=== PATIENT | male | born 1945 | race Caucasian/White ===

== ENCOUNTER 2016-10-10 08:09 | Emergency (ER) | payer MEDICARE ==
[2016-10-10 08:41] VITALS: BP 148/74
[2016-10-10 09:07] LABS: Basophils % (Auto) 0.8 % (0.0-1.8); Hematocrit 34.6 % (35.5-45.6); Hemoglobin 11.3 gm/dl (11.8-15.2); Mean Corpuscular HGB Conc 33 % (32-34); Mean Corpuscular Hemoglobin 29 pg (28-32); Mean Corpuscular Volume 88 fl (84-94); Platelet Count 228 K/mm3 (140-440); Red Blood Count 3.96 M/mm3 (3.65-5.03); Red Cell Distribution Width 15.2 % (13.2-15.2); White Blood Count 5.5 K/mm3 (4.5-11.0)
--- NOTE | 2016-10-10 09:20 | Cat Scan Report ---
CT CERVICAL SPINE WITHOUT CONTRAST:10/10/16 08:09:00 CLINICAL: Fall and neck pain. TECHNIQUE: Volumetric acquisition and 1.25-mm axial scan reconstructions without contrast. Sagittal and coronal reformats were performed. FINDINGS: Exaggerated cervical lordosis. Normal vertebral body alignment through T3. Degenerative disc disease with disc space narrowing and osteophytes at C5-6 and C6-7. Slight decreased height of the C5 and C6 vertebral bodies. However, no fracture. The odontoid and C1 are intact. Normal soft tissues. Normal soft tissues and airway. No apparent disc protrusions or bulges. Multilevel bilateral facet joint disease with facet joint hypertrophy. Multilevel bilateral neural foraminal stenosis secondary to uncal osteophytes and facet hypertrophy. IMPRESSION: Degenerative change. No apparent traumatic injury.
--- NOTE | 2016-10-10 09:24 | Cat Scan Report ---
CT HEAD WITHOUT CONTRAST:10/10/16 009:00 CLINICAL: Fall with blow to the head TECHNIQUE: 2.5-mm noncontrast scans. COMPARISON:None FINDINGS: The ventricles and sulci are mildly enlarged for age. No other abnormal hypodensity. No mass or mass effect. No hemorrhage, edema or extra-axial collection. Vascular calcifications. The sinuses are clear. Left frontal soft tissue swelling with a laceration. Normal orbits. The calvarium and skull base are intact. IMPRESSION: Left frontal soft tissue injury and no other apparent traumatic injury. Mild global cortical atrophy.
[2016-10-10 09:29] LABS: Albumin 3.4 g/dL (3.9-5); Albumin/Globulin Ratio 0.9 %; Alkaline Phosphatase 94 units/L (35-129); Anion Gap 19 mmol/L; BUN/Creatinine Ratio 11.42; Blood Urea Nitrogen 8 mg/dL (9-20); Calcium 8.4 mg/dL (8.4-10.2); Carbon Dioxide 21 mmol/L (22-30); Chloride 103.8 mmol/L (98-107); Glucose 96 mg/dL (75-100); Sodium 140 mmol/L (137-145); Total Protein 7.3 g/dL (6.3-8.2)
[2016-10-10 09:30] LABS: Alanine Aminotransferase < 5 units/L (7-56)
[2016-10-10 09:43] LABS: INR 1.12 (0.87-1.13)
[2016-10-10 09:44] LABS: Partial Thromboplastin Time 33.6 Sec. (24.2-36.6)
[2016-10-10] MEDS ORDERED: XYLOCAINE 2% INFILTRATI ONE (09:44)
--- NOTE | 2016-10-10 09:50 | Emergency Department Report ---
ED Fall HPI - General Chief Complaint: Fall Stated Complaint: LACERATION TO THE HEAD Time Seen by Provider: 10/10/16 09:14 Source: patient, EMS Mode of arrival: Stretcher - History of Present Illness Initial Comments: Mr. Small is a 70 years old male history of Parkinson disease he stated that he was getting out of his wheelchair to his bed and he fell he hit his head denied any history of loss of consciousness no headache no nausea no vomiting no weakness numbness or tingling sensation Complaint: fall -: Sudden Fall From: wheelchair Fall Witnessed: yes, by family Place Fall Occurred: home Loss of Consciousness: none Prolonged Down Time?: no Symptoms Prior to Fall: none Location: head Severity: mild Severity scale (0 -10): 3 Context: history of frequent falls Associated Symptoms: denies: headache, neck pain, numbness, weakness, chest paint, shortness of breath, abdominal pain, unable to walk - Related Data Allergies Allergy/AdvReac Type Severity Reaction Status Date / Time No Known Allergies Allergy Verified 10/10/16 08:19 ED Review of Systems ROS: Stated complaint: LACERATION TO THE HEAD Other details as noted in HPI Comment: All other systems reviewed and negative Constitutional: denies: chills, fever ENT: denies: ear pain, throat pain Respiratory: denies: cough, shortness of breath, SOB with exertion, SOB at rest Cardiovascular: denies: chest pain, palpitations Gastrointestinal: denies: abdominal pain, nausea, vomiting Musculoskeletal: denies: back pain, joint swelling Skin: denies: rash Neurological: denies: headache, weakness, numbness ED Past Medical Hx - Past Medical History Previous Medical History?: Yes Hx Hypertension: Yes Additional medical history: Parkinson's. A-fib - Social History Smoking Status: Never Smoker Substance Use Type: None ED Physical Exam - General Limitations: Physical Limitation General appearance: alert, in no apparent distress - Head Head exam: Present: other (2 cm laceration to the forehead) - Eye Eye exam: Present: normal appearance - ENT ENT exam: Present: normal exam - Neck Neck exam: Present: normal inspection, full ROM. Absent: tenderness, meningismus - Respiratory Respiratory exam: Present: normal lung sounds bilaterally. Absent: respiratory distress, wheezes, rales, rhonchi, stridor, chest wall tenderness, accessory muscle use, decreased breath sounds - Cardiovascular Cardiovascular Exam: Present: regular rate, normal rhythm, normal heart sounds - GI/Abdominal GI/Abdominal exam: Present: soft. Absent: tenderness, guarding, rebound, rigid , normal bowel sounds - Neurological Exam Neurological exam: Present: alert, oriented X3, CN II-XII intact - Skin Skin exam: Present: warm ED Course Vital Signs 10/10/16 10/10/16 10/10/16 08:19 08:40 09:41 Temperature 98.6 F 97.8 F Pulse Rate 47 L 46 L Respiratory 20 16 20 Rate Blood Pressure 130/40 Blood Pressure 148/74 [Right] O2 Sat by Pulse 100 98 100 Oximetry - I & D Face Type of Procedure: Simple - Laceration /Wound Repair Face Wound Location: head, face Wound Length (cm): 2 Wound's Depth, Shape: irregular Wound Explored: clean Irrigated w/ Saline (ccs): 50 Betadine Prep?: Yes Anesthesia: 1% Lidocaine Wound Debrided: moderate Wound Repaired With: sutures Suture Size/Type: 6:0 Number of Sutures: 3 Layer Closure?: No Sterile Dressing Applied?: Yes ED Medical Decision Making - Lab Data Result diagrams: 10/10/16 08:40 10/10/16 08:40 Critical care attestation.: If time is entered above; I have spent that time in minutes in the direct care of this critically ill patient, excluding procedure time. ED Disposition Clinical Impression: Head injury, Laceration of face Disposition: DC-01 TO HOME OR SELFCARE Is pt being admited?: No Condition: Stable Instructions: Minor Head Injury (ED), Suture Care (ED) Referrals: FERNANDO STONE MD [Primary Care Provider] - 3-5 Days
== END 2016-10-10 12:33 | disposition home or self-care (01) ==
LOC: ED 08:09
DX: S01.81XA Laceration without foreign body of other part of head, initial encounter (principal); I10 Essential (primary) hypertension; W05.0XXA Fall from non-moving wheelchair, initial encounter; Y93.9 Activity, unspecified; Y92.9 Unspecified place or not applicable; Y99.9 Unspecified external cause status
CPT/HCPCS: 36415; 70450; 72125; 80053; 85025; 85610; 85730

== ENCOUNTER 2016-11-01 04:33 | Emergency (ER) | payer MEDICARE ==
--- NOTE | 2016-11-01 07:12 | Emergency Department Report ---
ED Fall HPI - General Chief Complaint: Fall Stated Complaint: FALL/NOSE BLEED Time Seen by Provider: 11/01/16 06:37 Source: patient, EMS Mode of arrival: Stretcher - History of Present Illness Initial Comments: 70-year-old male fell out of bed this morning and struck. Patient has a history of Parkinson's. He does not report what happened. States he woke up on the floor. He has somepain but otherwise denies any other complaints. No headache no neck pain. He has an abrasion to his nose. He has a well-healed scar above his left eye. Denies any numbness tingling MD Complaint: fall -: Sudden Fall From: out of bed When Fall Occurred: unsure Fall Witnessed: no Place Fall Occurred: home Loss of Consciousness: none Prolonged Down Time?: no Symptoms Prior to Fall: none Location: head Associated Symptoms: denies: denies, headache, neck pain, numbness, weakness - Related Data Allergies Allergy/AdvReac Type Severity Reaction Status Date / Time No Known Allergies Allergy Verified 10/10/16 08:19 ED Review of Systems ROS: Stated complaint: FALL/NOSE BLEED Other details as noted in HPI Comment: All other systems reviewed and negative Constitutional: denies: chills, fever Eyes: denies: eye pain, eye discharge, vision change ENT: denies: ear pain, throat pain Respiratory: denies: cough, shortness of breath, wheezing Cardiovascular: denies: chest pain, palpitations Endocrine: no symptoms reported Gastrointestinal: denies: abdominal pain, nausea, diarrhea Genitourinary: denies: urgency, dysuria Musculoskeletal: denies: back pain, joint swelling, arthralgia Skin: denies: rash, lesions Neurological: denies: headache, weakness, paresthesias Psychiatric: denies: anxiety, depression Hematological/Lymphatic: denies: easy bleeding, easy bruising ED Past Medical Hx - Past Medical History Previous Medical History?: Yes Hx Hypertension: Yes Additional medical history: Parkinson's. A-fib - Surgical History Past Surgical History?: Yes Additional Surgical History: cardiac stents - Family History Family history: no significant - Social History Smoking Status: Never Smoker Substance Use Type: None ED Physical Exam - General Limitations: No Limitations General appearance: alert, in no apparent distress - Head Head exam: Present: atraumatic, normocephalic - Eye Eye exam: Present: normal appearance, other (small healed laceration above left eye). Absent: PERRL, EOMI, scleral icterus, conjunctival injection - ENT ENT exam: Present: mucous membranes moist, other (abrasion to the nose, no septal hematoma) - Neck Neck exam: Present: normal inspection. Absent: tenderness, meningismus, lymphadenopathy, thyromegaly - Respiratory Respiratory exam: Present: normal lung sounds bilaterally. Absent: respiratory distress, wheezes, rales - Cardiovascular Cardiovascular Exam: Present: regular rate, normal rhythm. Absent: systolic murmur, diastolic murmur, rubs, gallop - GI/Abdominal GI/Abdominal exam: Present: soft, normal bowel sounds. Absent: distended, tenderness - Rectal Rectal exam: Present: deferred - Extremities Exam Extremities exam: Present: normal inspection - Back Exam Back exam: Present: normal inspection - Neurological Exam Neurological exam: Present: alert, oriented X3 - Psychiatric Psychiatric exam: Present: normal affect, normal mood - Skin Skin exam: Present: warm, dry, intact, normal color. Absent: rash ED Course Vital Signs 11/01/16 11/01/16 05:15 07:05 Temperature 97.7 F Pulse Rate 46 L 48 L Respiratory 18 18 Rate Blood Pressure 153/83 Blood Pressure 117/78 [Right] O2 Sat by Pulse 99 95 Oximetry ED Medical Decision Making - Medical Decision Making 70-year-old male who fell out of bed and struck his face. Plan head CT and neck CT. If negative plan to discharge home. He has no neurological symptoms consistent with C-spine injury or intracranial pathology. I do not suspect either of these. No acute pathology on head CT or neck CT. Plan to discharge patient home. Patient is comfortable with plan. Portions of this chart were dictated with dictation software. There may be dictation errors contained within this note. Critical care attestation.: If time is entered above; I have spent that time in minutes in the direct care of this critically ill patient, excluding procedure time. ED Disposition Clinical Impression: Fall, Contusion, nose Disposition: DC-01 TO HOME OR SELFCARE Is pt being admited?: No Condition: Stable Instructions: Fall Prevention for Older Adults (ED), Contusion in Adults (ED) Referrals: PRIMARY CARE, [Primary Care Provider] - 3-5 Days
--- NOTE | 2016-11-01 08:25 | Cat Scan Report ---
CT HEAD WITHOUT CONTRAST INDICATION: Fall, head injury. COMPARISON: 10/10/2016. FINDINGS: Noncontrast head CT demonstrates stable, age-appropriate ventricles and sulci with mild periventricular and few white matter hypodense small vessel ischemic disease. No definite acute infarct, hemorrhage, mass effect or midline shift. No abnormal extra-axial fluid collections. Grossly normal posterior fossa with preserved basilar cisterns, though in part limited due to artifact. Symmetric eye globes. Mild right maxillary and ethmoid sinus mucosal thickening. Slight nasal septal deviation. Clear remainder imaged paranasal sinuses and right temporal bone/mastoid air cells. Left mastoid tip again not pneumatized, though left temporal bone air cells appear opacified. No left middle ear opacity seen. Intact calvarium. Partial healing of frontal scalp injury with mild swelling now remaining as on axial image 23. Numerous radiopaque dental material. CONCLUSION: 1. No acute intracranial CT abnormality with age appropriate atrophy and partial interval healing of left frontal scalp injury, as described. Please correlate. 2. Left mastoiditis and mild right-sided sinusitis, as above. Thank you for the opportunity to participate in this patient's care.
--- NOTE | 2016-11-01 08:36 | Cat Scan Report ---
CT CERVICAL SPINE WITHOUT CONTRAST INDICATION: Fall, head injury. COMPARISON: 10/10/2016. FINDINGS: Noncontrast axial, sagittal and coronal CT reconstructions through the cervical spine demonstrate normal posterior fossa. Opacified left temporal bone air cells. Right vertebral artery calcification. Streak artifact from radiopaque dental material limits exam. Assessment of the spinal canal itself also compromised from C5-C6 inferiorly due to artifact from shoulder soft tissues. Intact craniocervical articulation, dens, predental space, prevertebral soft tissues and the posterior elements. Normal vertebral body stature and alignment, though lower cervical degenerative spurring noted from C5-C7. Normal thyroid. Clear imaged lung bases. Patent airway. On the obtained axial images: C2-C3 demonstrates mild to moderate bilateral facet arthropathy. C3-C4 demonstrates bilateral uncovertebral spurring with moderate right and mild left neural foraminal narrowing. Moderate right and mild left facet arthropathy as well. C4-C5 demonstrates right more than left facet arthropathy. Mild left neural foraminal narrowing. C5-C6 demonstrates moderate disc narrowing. Diffuse degenerative spurring with left more than right neural foraminal narrowing. Mild bilateral facet arthropathy as well. Degenerative sclerosis also noted in C5 vertebral body inferiorly. C6-C7 demonstrates moderate disc narrowing. Diffuse degenerative spurring. Mild right neural foraminal narrowing. C6 vertebral body mild sclerosis inferiorly and lower endplate irregularity. C7-T1 appears within normal limits. CONCLUSION: No acute cervical spine CT abnormality with stable multilevel cervical spondylosis and left mastoiditis, as described. Please correlate. Thank you for the opportunity to participate in this patient's care.
[2016-11-01 11:31] VITALS: BP 143/81
== END 2016-11-01 11:31 | disposition home or self-care (01) ==
LOC: ED 04:33
DX: S00.33XA Contusion of nose, initial encounter (principal); I10 Essential (primary) hypertension; G20 Parkinson's disease; Z95.1 Presence of aortocoronary bypass graft; W06.XXXA Fall from bed, initial encounter; Y93.89 Activity, other specified; Y92.89 Other specified places as the place of occurrence of the external cause; Y99.8 Other external cause status
CPT/HCPCS: 70450; 72125; 99284

== ENCOUNTER 2017-03-11 00:42 | Inpatient (IN) | payer MEDICARE, OTHER ==
--- NOTE | 2017-03-11 00:49 | Emergency Department Report ---
HPI - General Time Seen by Provider: 03/11/17 00:46 - HPI HPI: This is a 71-year-old male presents to the emergency department by EMS from [facility] with altered mental status and some respiratory distress. He has a past medical history significant for Parkinson's, previous GI bleed, BPH, coronary artery disease with previous IA, history of SVT. He presents with a DO NOT RESUSCITATE signed. The patient apparently has a baseline mental status and GCS 15 but is currently unresponsive and nonverbal with gurgling respirations. Per EMS, the patient was found this way around 11 PM when there was a nursing change in [facility]. Unknown last known well time. ED Past Medical Hx - Past Medical History Hx Hypertension: Yes Hx CVA: No Hx Heart Attack/AMI: No Hx Congestive Heart Failure: No Hx Diabetes: No Hx Deep Vein Thrombosis: No Hx Pulmonary Embolism: No Hx GERD: No Hx Liver Disease: No Hx Renal Disease: No Hx Sickle Cell Disease: No Hx Arthritis: No Hx Headaches / Migraines: No Hx Seizures: No Hx Kidney Stones: No Hx Psychiatric Treatment: No Hx Asthma: No Hx COPD: No Hx Tuberculosis: No Hx Dementia: No Additional medical history: Parkinson's. A-fib - Surgical History Hx Coronary Stent: Yes Hx Open Heart Surgery: No Hx Pacemaker: No Hx Internal Defibrillator: No Hx Cholecystectomy: No Hx Appendectomy: No Hx Breast Surgery: No Additional Surgical History: cardiac stents - Social History Smoking Status: Never Smoker - Medications Home Medications: Home Medications Medication Instructions Recorded Confirmed Last Taken Type Apomorphine HCl [Apokyn] 10 mg SUB-Q 5XD 11/22/16 11/26/16 11/21/16 History Carbidopa/Levodopa ER 25-100 1 tab PO TID 11/22/16 11/26/16 11/21/16 History [Sinemet ER 25/100] 11/21/2016 Entacapone [Comtan] 200 mg PO Q6HR 11/22/16 11/26/16 11/21/16 History Gabapentin [Neurontin] 600 mg PO Q8HR 11/22/16 11/26/16 Unknown History Metoprolol Xl [Metoprolol 25 mg PO QDAY 11/22/16 11/26/16 Unknown History SUCCINATE ER TAB] Omeprazole 40 mg PO BID 11/22/16 11/26/16 Unknown History Oxycodone HCl/Acetaminophen 1 each PO Q4H PRN 11/22/16 11/26/16 Unknown History [Percocet 10/325 mg] Oxycodone HCl/Acetaminophen 1 each PO QHS 11/22/16 11/26/16 Unknown History [Percocet 10/325 mg] Triazolam 0.5 mg PO QHS 11/22/16 11/26/16 Unknown History amLODIPine [Norvasc] 5 mg PO DAILY 11/22/16 11/26/16 Unknown History Aspirin EC [Aspirin Enteric Coated 81 mg PO QDAY #30 tablet. 11/25/16 Unknown Rx TAB] FLUoxetine [PROzac] 60 mg PO QDAY capsule 11/25/16 11/26/16 Unknown Rx Levofloxacin [Levaquin TAB] 750 mg PO QDAY #5 tablet 11/25/16 11/26/16 Unknown Rx ED Review of Systems ROS: Stated complaint: REED Other details as noted in HPI Comment: Unobtainable due to pts medical conditions Physical Exam - Physical Exam Physical Exam: GENERAL: The patient is ill-appearing. HENT: Normocephalic. Atraumatic. Patient has moist mucous membranes. EYES: Pupils equal reactive to light bilaterally. NECK: Supple. Trachea is midline. CHEST/LUNGS: Coarse breath sounds and rhonchi heard throughout the chest. There is tachypnea and some accessory muscle use. There is respiratory distress noted. HEART/CARDIOVASCULAR: Regular. There is no tachycardia. There is no murmur. ABDOMEN: Abdomen is soft, nontender. Patient has normal bowel sounds. There is no abdominal distention. SKIN: Skin is hot but dry. NEURO: The patient is unresponsive. He will withdraw slightly to painful stimuli and does have a gag reflex. GCS of 6 MUSCULOSKELETAL: There is no deformity. There is no evidence of acute injury. - ABG Interpretation Ph: 7.44 PCO2: 26 PO2: 99 Bicarbonate: 17 Interpretation: respiratory alkalosis, metabolic alkalosis - Central Line Placement Right Femoral Consent Obtained: verbal consent (from Thao) Time Out Performed: Yes Patient Placed on Monitor/Pulse Ox: Yes MD Prep: mask, gown, gloves Central Line Prep: Chlorhexidine scrub Ultrasound Used for Placement: Yes Central Line Lumen Inserted: triple Bloods Obtained for Lab: Yes Central Line Position: good blood return, all ports aspirated, flus, sutured in place with nyl Dressing Applied: Tegaderm Patient Tolerated Procedure: well Complications: none ED Medical Decision Making - Lab Data Result diagrams: 03/11/17 01:13 03/11/17 01:13 - EKG Data -: EKG Interpreted by Me EKG shows normal: sinus rhythm, axis (left axis deviation), intervals ( prolonged QT and QTC intervals), QRS complexes (Q-wave to the inferior leads), ST-T waves Rate: normal - EKG Data When compared to previous EKG there are: previous EKG unavailable Interpretation: other (sinus rhythm, prolonged QT and QTC intervals, Q waves to the inferior leads) - Radiology Data Radiology results: report reviewed, image reviewed interpreted by me: X-ray shows some pulmonary vascular congestion. There are also patchy infiltrates seen throughout the chest. EXAM: CT HEAD/BRAIN WO CON HISTORY: AMS TECHNIQUE: Routine axial imaging was obtained of the brain without IV contrast. Comparison is made to the study of 11/01/2016. FINDINGS: There is mild generalized atrophy. There is no evidence of acute stroke or hemorrhage. There is slightly diminished attenuation of the periventricular white matter compatible with chronic ischemic white matter changes. The ventricular system is appropriate in size and is symmetric. The basal cisterns appear normal. The sinuses reveal minimal secretions in the right maxillary and left sphenoid sinuses. The mastoid air cells reveal sclerotic changes of the left air cells compatible with chronic mastoiditis. The right air cells are well pneumatized. IMPRESSION: Mild generalized atrophy with chronic ischemic white matter changes. No evidence of acute stroke or hemorrhage. Minimal dependent secretions in the right maxillary and left sphenoid sinus. Chronic left mastoiditis. Transcribed By: JANEL Dictated By: TOY URENA MD Electronically Authenticated By: TOY URENA MD Signed Date/Time: 03/10/17 3774 - Medical Decision Making The patient presents from his ECF with what appears to be respiratory distress with some gurgling respirations, rhonchi and coarse breath sounds. He presents with some hypotension, tachypnea and some hypoxia. The hypoxia improves when he is suctioned. Chest x-ray shows some vascular congestion and patchy infiltrates. CT of the head does not show any bleed, shift, mass or any acute process. Labs are mostly unremarkable. However with fever, hypotension, source of pneumonia, the patient appears to have sepsis and/or septic shock. Since the patient is DO NOT RESUSCITATE, despite the fact that he is not a candidate for BiPAP, he will not be intubated. He is currently on a nonrebreather and getting intermittent suction. I spoke to the patient's multiple times to update her about his ED course thus far and eventually spoke to her regarding pressors. She was in agreement to allow a central line to be placed and started on pressor secondary to his hypotension. Blood cultures sent and the patient was started on Zosyn and vancomycin. He will be admitted to the hospital and has been accepted for admission by the hospitalist service. - Differential Diagnosis pneumonia, influenza, sepsis, IA, dysrhythmia Critical Care Time: Yes Critical care time in (mins) excluding proc time.: 35 Critical care attestation.: If time is entered above; I have spent that time in minutes in the direct care of this critically ill patient, excluding procedure time. Critical care time spent on this patient and doing his initial evaluation, multiple re-evaluations , ordering interpretation of labs and imaging, antibiotic choice and medication administration, titration of pressors, multiple discussions with the patient's . This does not include the time spent doing the central line procedure. Critical Care Time: 35 minutes ED Disposition Clinical Impression: Hypoxia, Septic shock Pneumonia Qualifiers: Pneumonia type: due to unspecified organism Laterality: unspecified laterality Lung location: unspecified part of lung Qualified Code(s): J18.9 - Pneumonia, unspecified organism Disposition: 09 OP ADMIT IP TO THIS HOSP Is pt being admited?: Yes Condition: Critical Referrals: AMBROCIO ELLIOTT MD [Primary Care Provider] - 3-5 Days Time of Disposition: 05:50
[2017-03-11] MEDS ORDERED: TYLENOL PR ONE ×2 (01:19→10:58)
--- NOTE | 2017-03-11 01:22 | XRay Report ---
FINAL REPORT EXAM: XR CHEST 1V AP HISTORY: Altered Mental Status TECHNIQUE: A portable semi-erect view of the chest was obtained. FINDINGS: There are patchy infiltrates in the right upper lobe and to lesser extent in the left lung base. Heart size is normal. The lungs are not overtly congested. There EKG leads overlying the chest wall. The bones and soft tissues do not show any acute changes. IMPRESSION: Patchy infiltrates in the right upper lobe and left lower lobe compatible with pneumonia.
[2017-03-11] MEDS ORDERED: NACL 0.9% 1000 ML 1,000 ML ONE ×2 (01:47→20:36)
[2017-03-11 01:50] LABS: INR 1.09 (0.87-1.13)
[2017-03-11 01:51] LABS: Partial Thromboplastin Time 32.2 Sec. (24.2-36.6)
[2017-03-11] MEDS ORDERED: VANCOMYCIN/NS 1 GM/250 ML 1 GM/250 ML BAG IV ONE (02:00)
[2017-03-11] MEDS ORDERED: ZOSYN/NS 4.5GM/100ML 4.5 GM/100 ML VIAL IV ONE (02:00)
[2017-03-11 02:02] LABS: Basophils % (Auto) 0.2 % (0.0-1.8); Hematocrit 40.9 % (35.5-45.6); Hemoglobin 13.6 gm/dl (11.8-15.2); Lymphocytes # (Auto) 0.7 K/mm3 (1.2-5.4); Lymphocytes % (Auto) 9.5 % (13.4-35.0); Mean Corpuscular HGB Conc 33 % (32-34); Mean Corpuscular Hemoglobin 28 pg (28-32); Mean Corpuscular Volume 84 fl (84-94); Monocytes # (Auto) 0.4 K/mm3 (0.0-0.8); Monocytes % (Auto) 5.8 % (0.0-7.3); Platelet Count 169 K/mm3 (140-440); Red Blood Count 4.88 M/mm3 (3.65-5.03); Red Cell Distribution Width 19.6 % (13.2-15.2)
[2017-03-11 02:05] LABS: Amorphous Crystals,Urine Few; Bacteria,Urine 1+ /HPF (Negative); Bilirubin,Urine NEG (Negative); Blood,Urine SM (Negative); Color,Urine Amber (Yellow); Hyaline Casts,Urine 78 /LPF; Mucus,Urine 2+ /HPF; Nitrite,Urine POS (Negative); Protein,Urine <15 mg/dL mg/dL (Negative); Urobilinogen,Urine < 2.0 mg/dL (<2.0)
[2017-03-11 02:07] LABS: Albumin 3.4 g/dL (3.9-5); BUN/Creatinine Ratio 19; Blood Urea Nitrogen 19 mg/dL (9-20); Calcium 8.3 mg/dL (8.4-10.2); Hemolysis Index 35
[2017-03-11 02:08] LABS: Alanine Aminotransferase < 5 units/L (7-56)
[2017-03-11] MEDS ORDERED: TORADOL IV ONE (02:21)
[2017-03-11] MEDS ORDERED: NACL 0.9% 1000 ML 1,000 ML IV ONE (02:33)
--- NOTE | 2017-03-11 03:11 | Cat Scan Report ---
FINAL REPORT EXAM: CT HEAD/BRAIN WO CON HISTORY: AMS TECHNIQUE: Routine axial imaging was obtained of the brain without IV contrast. Comparison is made to the study of 11/01/2016. FINDINGS: There is mild generalized atrophy. There is no evidence of acute stroke or hemorrhage. There is slightly diminished attenuation of the periventricular white matter compatible with chronic ischemic white matter changes. The ventricular system is appropriate in size and is symmetric. The basal cisterns appear normal. The sinuses reveal minimal secretions in the right maxillary and left sphenoid sinuses. The mastoid air cells reveal sclerotic changes of the left air cells compatible with chronic mastoiditis. The right air cells are well pneumatized. IMPRESSION: Mild generalized atrophy with chronic ischemic white matter changes. No evidence of acute stroke or hemorrhage. Minimal dependent secretions in the right maxillary and left sphenoid sinus. Chronic left mastoiditis.
[2017-03-11] MEDS ORDERED: LEVOPHED DRIP 4 MG/NS 250 ML 4 MG/250 ML BAG IV ONE ×5 (04:49→20:40)
[2017-03-11] MEDS: LEVOPHED 8 MG in NACL 0.9% 250ML 242 ML IV SCH ×2 (05:00→09:32)
[2017-03-11] MEDS ORDERED: Vasostrict 20 UNIT in NACL 0.9% 100 ML IV SCH (09:00)
[2017-03-11] MEDS ORDERED: fentaNYL DRIP Premix 2,000 MCG/100 ML BAG IV SCH (09:00)
--- NOTE | 2017-03-11 09:21 | History and Physical Report ---
History of Present Illness Date of examination: 03/11/17 Date of admission: 03/11/2017 Chief complaint: chief complaint: Unresponsive since 11 PM History of present illness: DANIELLE This is a 71-year-old male presents to the emergency department by EMS from [facility] with altered mental status and some respiratory distress. He has a past medical history significant for Parkinson's, previous GI bleed, BPH, coronary artery disease with previous [place], history of SVT. He presents with a DO NOT RESUSCITATE signed. The patient apparently has a baseline mental status and GCS 15 but is currently unresponsive and nonverbal with gurgling respirations. Per EMS, the patient was found this way around 11 PM when there was a nursing change in [facility]. Unknown last known well time. Past Medical History Hx Hypertension: Yes Additional medical history: Parkinson's. A-fib -Surgical History Hx Coronary Stent: Yes Additional Surgical History: cardiac stents - Social History Smoking Status: Never Smoker - Medications Home Medications: Home Medications Medication Instructions Recorded Confirmed Last Taken Type Apomorphine HCl [Apokyn] 10 mg SUB-Q 5XD 11/22/16 11/26/16 11/21/16 History Carbidopa/Levodopa ER 25-100 1 tab PO TID 11/22/16 11/26/16 11/21/16 History [Sinemet ER 25/100] 11/21/2016 Entacapone [Comtan] 200 mg PO Q6HR 11/22/16 11/26/16 11/21/16 History Gabapentin [Neurontin] 600 mg PO Q8HR 11/22/16 11/26/16 Unknown History Metoprolol Xl [Metoprolol 25 mg PO QDAY 11/22/16 11/26/16 Unknown History SUCCINATE ER TAB] Omeprazole 40 mg PO BID 11/22/16 11/26/16 Unknown History Oxycodone HCl/Acetaminophen 1 each PO Q4H PRN 11/22/16 11/26/16 Unknown History [Percocet 10/325 mg] Oxycodone HCl/Acetaminophen 1 each PO QHS 11/22/16 11/26/16 Unknown History [Percocet 10/325 mg] Triazolam 0.5 mg PO QHS 11/22/16 11/26/16 Unknown History amLODIPine [Norvasc] 5 mg PO DAILY 11/22/16 11/26/16 Unknown History Aspirin EC [Aspirin Enteric Coated 81 mg PO QDAY #30 tablet. 11/25/16 Unknown Rx TAB] FLUoxetine [PROzac] 60 mg PO QDAY capsule 11/25/16 11/26/16 Unknown Rx Levofloxacin [Levaquin TAB] 750 mg PO QDAY #5 tablet 11/25/16 11/26/16 Unknown Rx Review of Systems ROS: Stated complaint: REED Other details as noted in HPI Unobtainable due to pts medical conditions Medications and Allergies Allergies Allergy/AdvReac Type Severity Reaction Status Date / Time No Known Allergies Allergy Verified 10/10/16 08:19 Home Medications Medication Instructions Recorded Confirmed Last Taken Type Apomorphine HCl [Apokyn] 10 mg SUB-Q 5XD 11/22/16 03/11/17 11/21/16 History Carbidopa/Levodopa ER 25-100 1 tab PO TID 11/22/16 03/11/17 11/21/16 History [Sinemet ER 25/100] 11/21/2016 Entacapone [Comtan] 200 mg PO Q6HR 11/22/16 03/11/17 11/21/16 History Metoprolol Xl [Metoprolol 25 mg PO QDAY 11/22/16 03/11/17 Unknown History SUCCINATE ER TAB] Omeprazole 40 mg PO BID 11/22/16 03/11/17 Unknown History Oxycodone HCl/Acetaminophen 1 each PO Q4H PRN 11/22/16 03/11/17 Unknown History [Percocet 10/325 mg] Oxycodone HCl/Acetaminophen 1 each PO QHS 11/22/16 03/11/17 Unknown History [Percocet 10/325 mg] Triazolam 0.5 mg PO QHS 11/22/16 03/11/17 Unknown History amLODIPine [Norvasc] 5 mg PO DAILY 11/22/16 03/11/17 Unknown History Aspirin EC [Aspirin Enteric Coated 81 mg PO QDAY #30 tablet. 11/25/16 Unknown Rx TAB] Gabapentin [Gralise] 300 mg PO DAILY 03/11/17 03/11/17 Unknown History Lactulose [Constulose] 20 gm PO Q8H 03/11/17 03/11/17 Unknown History Mirtazapine [Remeron] 30 mg PO QHS 03/11/17 03/11/17 Unknown History Multivitamin Tab W-MINERAL 1 each PO QD 03/11/17 03/11/17 Unknown History [Multiple Vitamin/Mineral (Theragran M)] Active Meds: Active Medications Norepinephrine 8 mg/ Sodium (Chloride) 250 mls @ 3.75 mls/hr IV TITR ARBEN; 2 MCG /MIN PRN Reason: Protocol Last Titration: 03/11/17 08:06 Dose: 30 mcg/min, 56.25 mls/hr Vasopressin 20 unit/ Sodium (Chloride) 101 mls @ 9.09 mls/hr IV TITR ARBEN; 0.03 UNITS/MIN PRN Reason: Protocol Fentanyl Citrate (Fentanyl Drip Premix) 2,000 mcg in 100 mls @ 3.856 mls/hr IV TITR ARBEN; 1 MCG/KG/HR PRN Reason: Protocol Exam - Physical Exam Narrative exam: patient lying in bed in respiratory distress - Constitutional Vitals: Temp Pulse Resp BP Pulse Ox 99 F 113 H 38 H 69/48 94 03/11/17 03:40 03/11/17 08:11 03/11/17 08:11 03/11/17 08:11 03/11/17 08:11 General appearance: Present: severe distress, well-nourished - EENT Eyes: Present: PERRL ENT: hearing intact, clear oral mucosa - Neck Neck: Present: supple, normal ROM - Respiratory Respiratory effort: normal Respiratory: bilateral: CTA, rales, rhonchi - Cardiovascular Heart rate: 98 Rhythm: regular Heart Sounds: Present: S1 & S2. Absent: rub, click - Extremities Extremities: no ischemia, pulses intact, pulses symmetrical, No edema Peripheral Pulses: within normal limits - Abdominal General gastrointestinal: Present: soft, non-tender, non-distended, normal bowel sounds Male genitourinary: Present: normal - Rectal Rectal Exam: stool brown - Integumentary Integumentary: Present: clear, warm, dry - Musculoskeletal Musculoskeletal: generalized weakness - Psychiatric Psychiatric: other (patient in respiratory distress) - Neurologic Neurologic: CNII-XII intact, moves all extremities - Allied Health Allied health notes reviewed: nursing, case management Results - Labs CBC & Chem 7: 03/12/17 04:05 03/12/17 04:05 Labs: Laboratory Last Values WBC 7.6 K/mm3 (4.5-11.0) 03/11/17 01:13 RBC 4.88 M/mm3 (3.65-5.03) 03/11/17 01:13 Hgb 13.6 gm/dl (11.8-15.2) 03/11/17 01:13 Hct 40.9 % (35.5-45.6) 03/11/17 01:13 MCV 84 fl (84-94) 03/11/17 01:13 MCH 28 pg (28-32) 03/11/17 01:13 MCHC 33 % (32-34) 03/11/17 01:13 RDW 19.6 % (13.2-15.2) H 03/11/17 01:13 Plt Count 169 K/mm3 (140-440) 03/11/17 01:13 Lymph % (Auto) 9.5 % (13.4-35.0) L 03/11/17 01:13 Wilkes % (Auto) 5.8 % (0.0-7.3) 03/11/17 01:13 Eos % (Auto) 0.0 % (0.0-4.3) 03/11/17 01:13 Baso % (Auto) 0.2 % (0.0-1.8) 03/11/17 01:13 Lymph # 0.7 K/mm3 (1.2-5.4) L 03/11/17 01:13 Wilkes # 0.4 K/mm3 (0.0-0.8) 03/11/17 01:13 Eos # 0.0 K/mm3 (0.0-0.4) 03/11/17 01:13 Baso # 0.0 K/mm3 (0.0-0.1) 03/11/17 01:13 Seg Neutrophils % 84.5 % (40.0-70.0) H 03/11/17 01:13 Seg Neutrophils # 6.5 K/mm3 (1.8-7.7) 03/11/17 01:13 PT 14.7 Sec. (12.2-14.9) 03/11/17 01:13 INR 1.09 (0.87-1.13) 03/11/17 01:13 APTT 32.2 Sec. (24.2-36.6) 03/11/17 01:13 POC ABG pH 7.445 (7.35-7.45) 03/11/17 01:41 POC ABG pCO2 26.0 (35-45) L 03/11/17 01:41 POC ABG pO2 99 (80-105) 03/11/17 01:41 POC ABG HCO3 17.9 03/11/17 01:41 POC ABG Total CO2 19 03/11/17 01:41 POC ABG O2 Sat 98 03/11/17 01:41 POC ABG Base Excess -6 03/11/17 01:41 FiO2 100 % 03/11/17 01:41 Sodium 137 mmol/L (137-145) 03/11/17 01:13 Potassium 3.7 mmol/L (3.6-5.0) 03/11/17 01:13 Chloride 95.8 mmol/L (98-107) L 03/11/17 01:13 Carbon Dioxide 21 mmol/L (22-30) L 03/11/17 01:13 Anion Gap 24 mmol/L 03/11/17 01:13 BUN 19 mg/dL (9-20) 03/11/17 01:13 Creatinine 1.0 mg/dL (0.8-1.5) 03/11/17 01:13 Estimated GFR > 60 ml/min 03/11/17 01:13 BUN/Creatinine Ratio 19 % 03/11/17 01:13 Glucose 124 mg/dL (75-100) H 03/11/17 01:13 Lactic Acid 1.70 mmol/L (0.7-2.0) 03/11/17 01:13 Calcium 8.3 mg/dL (8.4-10.2) L 03/11/17 01:13 Total Bilirubin 0.80 mg/dL (0.1-1.2) 03/11/17 01:13 AST 18 units/L (5-40) 03/11/17 01:13 ALT < 5 units/L (7-56) L 03/11/17 01:13 Alkaline Phosphatase 76 units/L (35-129) 03/11/17 01:13 Ammonia 18.0 umol/L (25-60) L 03/11/17 01:13 Troponin T < 0.010 ng/mL (0.00-0.029) 03/11/17 01:13 NT-Pro-B Natriuret Pep 584.8 pg/mL (0-900) 03/11/17 01:13 Total Protein 6.8 g/dL (6.3-8.2) 03/11/17 01:13 Albumin 3.4 g/dL (3.9-5) L 03/11/17 01:13 Albumin/Globulin Ratio 1.0 % 03/11/17 01:13 Urine Color Jenni (Yellow) 03/11/17 01:41 Urine Turbidity Clear (Clear) 03/11/17 01:41 Urine pH 5.0 (5.0-7.0) 03/11/17 01:41 Ur Specific Hamlin 1.028 (1.003-1.030) 03/11/17 01:41 Urine Protein <15 mg/dl mg/dL (Negative) 03/11/17 01:41 Urine Glucose (UA) Neg mg/dL (Negative) 03/11/17 01:41 Urine Ketones Neg mg/dL (Negative) 03/11/17 01:41 Urine Blood Sm (Negative) 03/11/17 01:41 Urine Nitrite Pos (Negative) 03/11/17 01:41 Urine Bilirubin Neg (Negative) 03/11/17 01:41 Urine Urobilinogen < 2.0 mg/dL (<2.0) 03/11/17 01:41 Ur Leukocyte Esterase Mod (Negative) 03/11/17 01:41 Urine WBC (Auto) 3.0 /HPF (0.0-6.0) 03/11/17 01:41 Urine RBC (Auto) 4.0 /HPF (0.0-6.0) 03/11/17 01:41 U Epithel Cells (Auto) < 1.0 /HPF (0-13.0) 03/11/17 01:41 Urine Bacteria (Auto) 1+ /HPF (Negative) 03/11/17 01:41 Amorphous Crystals Few 03/11/17 01:41 Hyaline Casts 78 /LPF 03/11/17 01:41 Urine Mucus 2+ /HPF 03/11/17 01:41 - Imaging and Cardiology EKG: report reviewed Chest x-ray: report reviewed (patchy infiltrates in the right upper lobe and left lobe) Assessment and Plan Advance Directives: Yes (DO NOT RESUSCITATE) VTE prophylaxis?: Chemical Plan of care discussed with patient/family: Yes - Patient Problems (1) Acute respiratory failure Current Visit: Yes Status: Acute Qualifiers: Respiratory failure complication: hypoxia Qualified Code(s): J96.01 - Acute respiratory failure with hypoxia Plan to address problem: patient not to be intubated. IV Solu-Medrol Duonebs and IV antibiotics. (2) Septic shock Current Visit: Yes Status: Acute Plan to address problem: patient in septic shock secondary to bilateral pneumonia. Possible aspiration pneumonia. Patient started on Zosyn and vancomycin. IV Levophed as necessary. Titrate to keep systolic blood pressure above 100. (3) Pneumonia Current Visit: Yes Status: Acute Qualifiers: Pneumonia type: aspiration pneumonia Laterality: unspecified laterality Lung location: unspecified part of lung Qualified Code(s): J18.9 - Pneumonia, unspecified organism Plan to address problem: bilateral pneumonia. Possible aspiration pneumonia. Sputum cultures pending. Blood cultures pending. IV vancomycin and IV Zosyn for now. ID consult requested. (4) Hypertension Current Visit: Yes Status: Chronic Qualifiers: Hypertension type: essential hypertension Qualified Code(s): I10 - Essential (primary) hypertension Plan to address problem: we will hold antihypertensives (5) Parkinsons disease Current Visit: Yes Status: Chronic Plan to address problem: continue Sinemet. (6) Depression Current Visit: Yes Status: Chronic Qualifiers: Depression Type: dysthymia Qualified Code(s): F34.1 - Dysthymic disorder Plan to address problem: we will hold the Prozac for the time being (7) DVT prophylaxis Current Visit: Yes Status: Acute Plan to address problem: Lovenox 30 mg subcutaneous daily (8) Advanced directives, counseling/discussion Current Visit: Yes Status: Acute Plan to address problem: discussed with about DO NOT RESUSCITATE AND HOSPICE> Patient to decide about hospice in next 24 hours. Prognosis is guarded.
[2017-03-11] MEDS ORDERED: DULCOLAX PR PRN (09:26)
[2017-03-11] MEDS ORDERED: ZOFRAN IV PRN (09:26)
[2017-03-11] MEDS ORDERED: TYLENOL PO PRN (09:26)
[2017-03-11] MEDS ORDERED: MILK OF MAGNESIA PO PRN (09:26)
[2017-03-11] MEDS ORDERED: MORPHINE IV PRN (09:26)
[2017-03-11] MEDS ORDERED: LOVENOX SUB-Q SCH (10:00)
[2017-03-11] MEDS ORDERED: VANCOMYCIN PHARMACY TO DOSE IV SCH (10:00)
[2017-03-11] MEDS: NACL 0.9% 1000 ML 1,000 ML IV SCH ×2 (10:46→21:06)
[2017-03-11] MEDS ORDERED: TYLENOL PR PRN (10:47)
[2017-03-11] MEDS ORDERED: LOVENOX SUB-Q ONE (12:02)
[2017-03-11] MEDS: LOVENOX SUB-Q SCH (12:11)
[2017-03-11] MEDS: ZOSYN/NS 4.5GM/100ML 4.5 GM/100 ML VIAL IV SCH ×3 (13:10→22:36)
[2017-03-11] MEDS: VANCOMYCIN 1,500 MG in NACL 0.9% 500 ML 500 ML IV SCH (13:44)
--- NOTE | 2017-03-11 13:48 | Consultation ---
History of Present Illness - Reason for Consult Consult date: 03/11/17 septic shock Requesting physician: CEDRIC DICKINSON - History of Present Illness 71 years old male with history of Parkinson's, previous GI bleed, BPH, coronary artery disease with previous [place], history of SVT, resident of [facility]; admitted on 03/11/17 due to altered mental status and some respiratory distress. It is unclear the details of the NH encounter where he was found unresponsive. Patient is currently intubated and unable to give a history. In the emergency room, initial temperature was 104, heart rate 86, respiration 34, O2 sat 93, blood pressure 101/60. Initial white count 7.6. Hemoglobin 13.6. Creatinine 1. Urinalysis was negative. Chest x-ray showed patchy infiltrates in the right upper lobe and left lower lobe. CT of the head showed mild atrophy with chronic ischemic changes. Right maxillary and left sphenoid sinusitis. Chronic left mastoiditis. Microbiology: Blood cultures: 03/11 pending Influenza: neg Other: Current Antimicrobials: Zosyn Vancomycin Previous Antimicrobials: Past History Past Medical History: CAD, other (GI bleed, parkinson ) Medications and Allergies Allergies Allergy/AdvReac Type Severity Reaction Status Date / Time No Known Allergies Allergy Verified 10/10/16 08:19 Home Medications Medication Instructions Recorded Confirmed Last Taken Type Apomorphine HCl [Apokyn] 10 mg SUB-Q 5XD 11/22/16 03/11/17 11/21/16 History Carbidopa/Levodopa ER 25-100 1 tab PO TID 11/22/16 03/11/17 11/21/16 History [Sinemet ER 25/100] 11/21/2016 Entacapone [Comtan] 200 mg PO Q6HR 11/22/16 03/11/17 11/21/16 History Metoprolol Xl [Metoprolol 25 mg PO QDAY 11/22/16 03/11/17 Unknown History SUCCINATE ER TAB] Omeprazole 40 mg PO BID 11/22/16 03/11/17 Unknown History Oxycodone HCl/Acetaminophen 1 each PO Q4H PRN 11/22/16 03/11/17 Unknown History [Percocet 10/325 mg] Oxycodone HCl/Acetaminophen 1 each PO QHS 11/22/16 03/11/17 Unknown History [Percocet 10/325 mg] Triazolam 0.5 mg PO QHS 11/22/16 03/11/17 Unknown History amLODIPine [Norvasc] 5 mg PO DAILY 11/22/16 03/11/17 Unknown History Aspirin EC [Aspirin Enteric Coated 81 mg PO QDAY #30 tablet. 11/25/16 Unknown Rx TAB] Gabapentin [Gralise] 300 mg PO DAILY 03/11/17 03/11/17 Unknown History Lactulose [Constulose] 20 gm PO Q8H 03/11/17 03/11/17 Unknown History Mirtazapine [Remeron] 30 mg PO QHS 03/11/17 03/11/17 Unknown History Multivitamin Tab W-MINERAL 1 each PO QD 03/11/17 03/11/17 Unknown History [Multiple Vitamin/Mineral (Theragran M)] Active Meds: Active Medications Acetaminophen (Tylenol) 650 mg NE Q4H PRN PRN Reason: Pain, Mild (1-3) Last Admin: 03/11/17 11:21 Dose: 650 mg Bisacodyl (Dulcolax) 10 mg NE QDAY PRN PRN Reason: Constipation unrelieved by MOM Enoxaparin Sodium (Lovenox) 40 mg SUB-Q Q24H ARBEN Last Admin: 03/11/17 12:11 Dose: 40 mg Vasopressin 20 unit/ Sodium (Chloride) 101 mls @ 9.09 mls/hr IV TITR ARBEN; 0.03 UNITS/MIN PRN Reason: Protocol Fentanyl Citrate (Fentanyl Drip Premix) 2,000 mcg in 100 mls @ 3.856 mls/hr IV TITR ARBEN; 1 MCG/KG/HR PRN Reason: Protocol Last Admin: 03/11/17 12:12 Dose: 1 mcg/kg/hr, 3.856 mls/hr Sodium Chloride (Nacl 0.9% 1000 Ml) 1,000 mls @ 100 mls/hr IV DIRECT ARBEN Last Admin: 03/11/17 10:46 Dose: 100 mls/hr Piperacillin Sod/Tazobactam Sod (Zosyn/Ns 4.5gm/100ml) 4.5 gm in 100 mls @ 200 mls/hr IV Q8HR ARBEN PRN Reason: Protocol Last Admin: 03/11/17 13:10 Dose: 200 mls/hr Vancomycin HCl 1,500 mg/ (Sodium Chloride) 515 mls @ 333.333 mls/hr IV Q12H ARBEN Last Admin: 03/11/17 13:44 Dose: 333.333 mls/hr Norepinephrine (Levophed Drip 4 Mg/Ns 250 Ml) 4 mg in 250 mls @ 7.5 mls/hr IV TITR ARBEN; 2 MCG/MIN PRN Reason: Protocol Magnesium Hydroxide (Milk Of Magnesia) 30 ml PO Q4H PRN PRN Reason: Constipation Morphine Sulfate (Morphine) 2 mg IV Q4H PRN PRN Reason: Pain, Moderate (4-6) Ondansetron HCl (Zofran) 4 mg IV Q8H PRN PRN Reason: N/V unrelieved by Ted Vancomycin HCl (Vancomycin Pharmacy To Dose) 1 each IV PKCONSULT ARBEN PRN Reason: Protocol Review of Systems ROS unobtainable: due to mental status Physical Examination - Physical Exam Narrative exam: General appearance: comatose in mod resp distress on 15L O2 mask Eyes: anicteric sclerae, moist conjunctivae; no lid-lag; PERRLA HENT: Atraumatic; oropharynx clear with moist mucous membranes and no mucosal ulcerations/no oral thrush; normal hard and soft palate. Normal external ears. Neck: Trachea midline; supple, no thyromegaly or lymphadenopathy Lungs: allie crackles CV: RRR, no murmurs Abdomen: Soft, non-tender Extremities: No peripheral edema or extremity lymphadenopathy Skin: Normal temperature, turgor and texture; no rash, ulcers or subcutaneous nodules Psych: Appropriate affect, alert and oriented to person, place and time. Neuro: alert and oriented x 3. Moving all extermities Lines: right fem TLC / zaldivar - Constitutional Vitals: Vital Signs Temp Pulse Resp BP Pulse Ox 99.6 F 103 H 35 H 102/59 97 03/11/17 12:59 03/11/17 12:51 03/11/17 12:51 03/11/17 12:51 03/11/17 12:51 Temperature -Last 24 Hours Temperature 99.6 F Temperature 100.5 F Temperature 99 F Temperature 104 F Results - Labs CBC & Chem 7: 03/11/17 01:13 03/11/17 01:13 Labs: Abnormal lab results 03/11/17 03/11/1703/11/18 Range/Units 01:13 01:13 01:13 RDW 19.6 H (13.2-15.2) % Lymph % (Auto) 9.5 L (13.4-35.0) % Lymph # 0.7 L (1.2-5.4) K/mm3 Seg Neutrophils % 84.5 H (40.0-70.0) % POC ABG pCO2 (35-45) Chloride 95.8 L (98-107) mmol/L Carbon Dioxide 21 L (22-30) mmol/L Glucose 124 H (75-100) mg/dL Calcium 8.3 L (8.4-10.2) mg/dL ALT < 5 L (7-56) units/L Ammonia 18.0 L (25-60) umol/L Albumin 3.4 L (3.9-5) g/dL 03/11/17 Range/Units 01:41 RDW (13.2-15.2) % Lymph % (Auto) (13.4-35.0) % Lymph # (1.2-5.4) K/mm3 Seg Neutrophils % (40.0-70.0) % POC ABG pCO2 26.0 L (35-45) Chloride (98-107) mmol/L Carbon Dioxide (22-30) mmol/L Glucose (75-100) mg/dL Calcium (8.4-10.2) mg/dL ALT (7-56) units/L Ammonia (25-60) umol/L Albumin (3.9-5) g/dL Assessment and Plan Assessment: 1) Sepsis with septic shock: Present on admission, manifested by fever, tachycardia, hypotension. Etiology most likely bilateral pneumonia. 2) Bilateral pneumonia ? aspiration ?HCAP. Influenza neg. 3) Respiratory failure 4) AMS 5) Sinusitis 6) DNR Plan: -follow-up blood cultures -obtain respiratory cultures, C-reactive protein (CRP) -conrinue zosyn and vancomycin poor prognosis Thank you Dr Dickinson for your consultation, will follow up with you. Kelli Reeder MD Infectious Diseases Specialist [facility] ([facility] M [phone] O [phone]
[2017-03-11] MEDS: LEVOPHED DRIP 4 MG/NS 250 ML 4 MG/250 ML BAG IV SCH ×3 (14:30→22:12)
[2017-03-12 04:24] LABS: Hematocrit 38.8 % (35.5-45.6); Hemoglobin 12.6 gm/dl (11.8-15.2); Mean Corpuscular HGB Conc 32 % (32-34); Mean Corpuscular Hemoglobin 28 pg (28-32); Mean Corpuscular Volume 86 fl (84-94); Platelet Count 150 K/mm3 (140-440); Red Blood Count 4.54 M/mm3 (3.65-5.03); Red Cell Distribution Width 19.7 % (13.2-15.2)
[2017-03-12 04:49] LABS: Albumin 2.2 g/dL (3.9-5); Calcium 7.3 mg/dL (8.4-10.2)
[2017-03-12 07:31] LABS: Basophils % (Manual) 0 % (0.0-1.8); Eosinophils % (Manual) 0 % (0.0-4.3); Total Cells Counted 100
[2017-03-12 07:32] LABS: Anisocytosis 1+
[2017-03-12 07:33] LABS: Dohle Bodies 1+
[2017-03-12 07:40] VITALS: BP 111/53
[2017-03-12] MEDS: VANCOMYCIN 1,500 MG in NACL 0.9% 500 ML 500 ML IV SCH (07:49)
[2017-03-12] MEDS: ZOSYN/NS 4.5GM/100ML 4.5 GM/100 ML VIAL IV SCH ×3 (07:51→15:46)
--- NOTE | 2017-03-12 09:35 | Event Note ---
Date: 03/12/17 71 y/o male with parkinson's, admitted with acute respiratory failure shock. Thought secondary to pneumonia. Patient is an AND but ED convinced to allow central line placement and start vasopressor therapy. Currently patient is maxed on levophed and currently on a nonrebreather as she did not want him intubated. Patient is getting IVF's and abx therapy. Spoke with on the phone this am and explained that there has essentially been no improvement in overall clinical care. She is going to speak with her daughter about coming down to see him. No escalation of care is to be done and understands and agrees with this. I explained to her that I could not guarantee the 10 hours she was requesting for her daughter to make it down here. CCT 31 minutes.
--- NOTE | 2017-03-12 09:36 | Consultation ---
History of Present Illness - Reason for Consult Consult date: 03/12/17 Shock Requesting physician: CEDRIC DICKINSON - History of Present Illness 71 y/o male with parkinsons's admitted with shock Past History Past Medical History: CAD, other (GI bleed, parkinson ) Medications and Allergies Allergies Allergy/AdvReac Type Severity Reaction Status Date / Time No Known Allergies Allergy Verified 10/10/16 08:19 Home Medications Medication Instructions Recorded Confirmed Last Taken Type Apomorphine HCl [Apokyn] 10 mg SUB-Q 5XD 11/22/16 03/11/17 11/21/16 History Carbidopa/Levodopa ER 25-100 1 tab PO TID 11/22/16 03/11/17 11/21/16 History [Sinemet ER 25/100] 11/21/2016 Entacapone [Comtan] 200 mg PO Q6HR 11/22/16 03/11/17 11/21/16 History Metoprolol Xl [Metoprolol 25 mg PO QDAY 11/22/16 03/11/17 Unknown History SUCCINATE ER TAB] Omeprazole 40 mg PO BID 11/22/16 03/11/17 Unknown History Oxycodone HCl/Acetaminophen 1 each PO Q4H PRN 11/22/16 03/11/17 Unknown History [Percocet 10/325 mg] Oxycodone HCl/Acetaminophen 1 each PO QHS 11/22/16 03/11/17 Unknown History [Percocet 10/325 mg] Triazolam 0.5 mg PO QHS 11/22/16 03/11/17 Unknown History amLODIPine [Norvasc] 5 mg PO DAILY 11/22/16 03/11/17 Unknown History Aspirin EC [Aspirin Enteric Coated 81 mg PO QDAY #30 tablet. 11/25/16 Unknown Rx TAB] Gabapentin [Gralise] 300 mg PO DAILY 03/11/17 03/11/17 Unknown History Lactulose [Constulose] 20 gm PO Q8H 03/11/17 03/11/17 Unknown History Mirtazapine [Remeron] 30 mg PO QHS 03/11/17 03/11/17 Unknown History Multivitamin Tab W-MINERAL 1 each PO QD 03/11/17 03/11/17 Unknown History [Multiple Vitamin/Mineral (Theragran M)] Active Meds: Active Medications Acetaminophen (Tylenol) 650 mg GA Q4H PRN PRN Reason: Pain, Mild (1-3) Last Admin: 03/11/17 11:21 Dose: 650 mg Bisacodyl (Dulcolax) 10 mg GA QDAY PRN PRN Reason: Constipation unrelieved by MOM Enoxaparin Sodium (Lovenox) 40 mg SUB-Q Q24H ARBEN Last Admin: 03/11/17 12:11 Dose: 40 mg Vasopressin 20 unit/ Sodium (Chloride) 101 mls @ 9.09 mls/hr IV TITR ARBEN; 0.03 UNITS/MIN PRN Reason: Protocol Fentanyl Citrate (Fentanyl Drip Premix) 2,000 mcg in 100 mls @ 3.856 mls/hr IV TITR ARBEN; 1 MCG/KG/HR PRN Reason: Protocol Last Titration: 03/12/17 07:49 Dose: 1 mcg/kg/hr, 3.856 mls/hr Sodium Chloride (Nacl 0.9% 1000 Ml) 1,000 mls @ 100 mls/hr IV DIRECT ARBEN Last Admin: 03/11/17 21:06 Dose: 100 mls/hr Piperacillin Sod/Tazobactam Sod (Zosyn/Ns 4.5gm/100ml) 4.5 gm in 100 mls @ 200 mls/hr IV Q8HR ARBEN PRN Reason: Protocol Last Admin: 03/12/17 07:51 Dose: 200 mls/hr Vancomycin HCl 1,500 mg/ (Sodium Chloride) 515 mls @ 333.333 mls/hr IV Q12H ARBEN Last Admin: 03/12/17 07:49 Dose: 333.333 mls/hr Norepinephrine (Levophed Drip 4 Mg/Ns 250 Ml) 4 mg in 250 mls @ 7.5 mls/hr IV TITR ARBEN; 2 MCG/MIN PRN Reason: Protocol Last Admin: 03/11/17 22:12 Dose: 20 mcg/min, 75 mls/hr Influenza Virus Vaccine Quadrival (Fluarix Quad [id number](36 Mos+) 0.5 ml IM .ONCE ONE Stop: 03/12/17 12:01 Magnesium Hydroxide (Milk Of Magnesia) 30 ml PO Q4H PRN PRN Reason: Constipation Morphine Sulfate (Morphine) 2 mg IV Q4H PRN PRN Reason: Pain, Moderate (4-6) Ondansetron HCl (Zofran) 4 mg IV Q8H PRN PRN Reason: N/V unrelieved by Reglan Pneumococcal Polyvalent Vaccine (Pneumovax 23) 0.5 ml IM .ONCE ONE Stop: 03/12/17 12:01 Vancomycin HCl (Vancomycin Pharmacy To Dose) 1 each IV PKCONSULT ARBEN PRN Reason: Protocol Exam - Constitutional Vitals: Temp Pulse Resp BP Pulse Ox 99.1 F 101 H 26 H 111/53 95 03/11/17 18:16 03/12/17 07:30 03/12/17 07:30 03/12/17 07:30 03/12/17 06:41 Results - Labs CBC & Chem 7: 03/12/17 04:05 03/12/17 04:05 Labs: Abnormal lab results 03/11/17 03/12/17 03/12/17 Range/Units 01:13 04:05 04:05 RDW 19.7 H (13.2-15.2) % Seg Neuts % (Manual) 19.0 L (40.0-70.0) % Lymphocytes % (Manual) 9.0 L (13.4-35.0) % Monocytes % (Manual) 13.0 H (0.0-7.3) % Seg Neutrophils # Man 1.6 L (1.8-7.7) K/mm3 Lymphocytes # (Manual) 0.8 L (1.2-5.4) K/mm3 Monocytes # (Manual) 1.1 H (0.0-0.8) K/mm3 Chloride 109.3 H (98-107) mmol/L Carbon Dioxide 17 L (22-30) mmol/L BUN 31 H (9-20) mg/dL Calcium 7.3 L (8.4-10.2) mg/dL C-Reactive Protein 23.40 H (0.00-1.30) mg/dL Total Protein 5.7 L (6.3-8.2) g/dL Albumin 2.2 L (3.9-5) g/dL
[2017-03-12] MEDS: LEVOPHED DRIP 4 MG/NS 250 ML 4 MG/250 ML BAG IV SCH ×2 (09:52→15:44)
[2017-03-12] MEDS: NACL 0.9% 1000 ML 1,000 ML IV SCH (09:53)
--- NOTE | 2017-03-12 10:37 | Progress Note ---
Assessment and Plan Assessment: 1) Sepsis with septic shock: not better. Etiology most likely bilateral pneumonia. CRP=23 2) Bilateral pneumonia ? aspiration ?HCAP. Influenza neg. 3) Respiratory failure: worsening 4) AMS 5) Sinusitis 6) DNR Plan: -follow-up blood cultures -follow-up respiratory cultures -continue zosyn and vancomycin day 2 I will be off tomorrow covering over the phone. poor prognosis Thank you Dr Christy for your consultation, will follow up with you. Kelli Reeder MD Infectious Diseases Specialist [facility] M [phone] O [phone] Subjective Date of service: 03/12/17 Principal diagnosis: septic shock Interval history: Remains critically ill on levophed at 30 mcg/min, tmax 100.5, tachycardic on monitor, severe resp distress on 15L O2 mask, lethargic Microbiology: Blood cultures: 03/11 pending Influenza: neg Other: Current Antimicrobials: Zosyn / Vancomycin 5 Previous Antimicrobials: Objective - Exam Narrative Exam: General appearance: comatose in mod resp distress on 15L O2 mask Eyes: anicteric sclerae, moist conjunctivae; no lid-lag; PERRLA HENT: Atraumatic; oropharynx dry mucosa Neck: Trachea midline; supple, no thyromegaly or lymphadenopathy Lungs: allie crackles and loud rhonchi CV: RRR, no murmurs Abdomen: Soft, non-tender Extremities: No peripheral edema or extremity lymphadenopathy Skin: Normal temperature, turgor and texture; no rash, ulcers or subcutaneous nodules Psych: Appropriate affect, alert and oriented to person, place and time. Neuro: alert and oriented x 3. Moving all extermities Lines: right fem TLC / zaldivar - Constitutional Vitals: Vital Signs Temp Pulse Resp BP Pulse Ox 99.1 F 101 H 26 H 111/53 95 03/11/17 18:16 03/12/17 07:30 03/12/17 07:30 03/12/17 07:30 03/12/17 06:41 Temperature -Last 24 Hours Temperature 99.1 F Temperature 99.6 F Temperature 100.5 F - Labs CBC & Chem 7: 03/12/17 04:05 03/12/17 04:05 Labs: Abnormal lab results 01/07/2203/12/17 03/12/17 Range/Units 01:13 04:05 04:05 RDW 19.7 H (13.2-15.2) % Seg Neuts % (Manual) 19.0 L (40.0-70.0) % Lymphocytes % (Manual) 9.0 L (13.4-35.0) % Monocytes % (Manual) 13.0 H (0.0-7.3) % Seg Neutrophils # Man 1.6 L (1.8-7.7) K/mm3 Lymphocytes # (Manual) 0.8 L (1.2-5.4) K/mm3 Monocytes # (Manual) 1.1 H (0.0-0.8) K/mm3 Chloride 109.3 H (98-107) mmol/L Carbon Dioxide 17 L (22-30) mmol/L BUN 31 H (9-20) mg/dL Calcium 7.3 L (8.4-10.2) mg/dL C-Reactive Protein 23.40 H (0.00-1.30) mg/dL Total Protein 5.7 L (6.3-8.2) g/dL Albumin 2.2 L (3.9-5) g/dL
[2017-03-12] MEDS ORDERED: PEPCID IV SCH (11:00)
[2017-03-12] MEDS: LOVENOX SUB-Q SCH (11:08)
[2017-03-12] MEDS ORDERED: PNEUMOVAX 23 IM ONE (12:00)
[2017-03-12] MEDS ORDERED: Fluarix Quad 2017-2018(36 MOS+ IM ONE (12:00)
[2017-03-12] MEDS ORDERED: SODIUM BICARBONATE FEEDTUBE PRN (12:07)
[2017-03-12] MEDS ORDERED: SIMPLE SYRUP FEEDTUBE PRN ×2 (12:07)
[2017-03-12] MEDS ORDERED: PANCREAZE DR 10,500 UNIT FEEDTUBE PRN (12:07)
--- NOTE | 2017-03-12 15:30 | Progress Note ---
Assessment and Plan Acute respiratory failure: Continue nonrebreather mask. Comfort care Septic shock: Likely secondary to pneumonia He is on norepinephrine drip ID and pulmonary consult note reviewed and appreciated Prognosis poor Bilateral pneumonia: Continue vancomycin and Zosyn. influenza is negative History of Parkinson's disease: DO NOT RESUSCITATE Subjective Date of service: 03/12/17 Principal diagnosis: septic shock Interval history: Patient is unresponsive On nonrebreather via Ventimask respirations are labored No family member in the room Objective - Constitutional Vitals: Vital Signs - 12hr 03/12/17 03/12/17 03/12/17 03:31 03:41 03:51 Pulse Rate 85 84 84 Respiratory 26 H 25 H 26 H Rate Blood Pressure 79/50 79/50 78/46 O2 Sat by Pulse 91 91 91 Oximetry 03/12/17 03/12/17 03/12/17 04:00 04:11 04:21 Pulse Rate 85 86 86 Respiratory 28 H 25 H 24 Rate Blood Pressure 83/47 83/47 81/51 O2 Sat by Pulse 89 90 90 Oximetry 03/12/17 03/12/17 03/12/17 04:30 04:41 04:51 Pulse Rate 88 93 H 96 H Respiratory 25 H 25 H 26 H Rate Blood Pressure 99/58 99/58 119/62 O2 Sat by Pulse 90 93 97 Oximetry 03/12/17 03/12/17 03/12/17 05:00 05:11 05:21 Pulse Rate 98 H 96 H 96 H Respiratory 25 H 26 H 25 H Rate Blood Pressure 130/55 130/55 117/59 O2 Sat by Pulse 95 95 90 Oximetry 03/12/17 03/12/17 03/12/17 05:30 05:41 05:51 Pulse Rate 102 H 103 H 102 H Respiratory 24 25 H 26 H Rate Blood Pressure 116/58 116/58 114/64 O2 Sat by Pulse 94 94 95 Oximetry 03/12/17 03/12/17 03/12/17 06:00 06:11 06:21 Pulse Rate 102 H 103 H 104 H Respiratory 25 H 26 H 27 H Rate Blood Pressure 117/62 117/62 113/63 O2 Sat by Pulse 95 96 94 Oximetry 03/12/17 03/12/17 03/12/17 06:30 06:41 07:25 Pulse Rate 101 H 102 H 101 H Respiratory 26 H 25 H 28 H Rate Blood Pressure 117/67 117/67 O2 Sat by Pulse 94 95 Oximetry 03/12/17 07:30 Pulse Rate 101 H Respiratory 26 H Rate Blood Pressure 111/53 O2 Sat by Pulse Oximetry General appearance: Present: severe distress - Neck Neck: supple, no masses or JVD - Respiratory Respiratory effort: labored Respiratory: bilateral: rales, other (course breath sounds) - Cardiovascular Rhythm: regular Heart Sounds: Present: S1 & S2 Extremities: No edema - Gastrointestinal General gastrointestinal: Present: soft, non-tender - Neurologic Neurologic: other (unresponsive) - Labs CBC & Chem 7: 03/12/17 04:05 03/12/17 04:05 Labs: Abnormal lab results 03/11/17 03/12/17 03/12/17 Range/Units 01:13 04:05 04:05 RDW 19.7 H (13.2-15.2) % Seg Neuts % (Manual) 19.0 L (40.0-70.0) % Lymphocytes % (Manual) 9.0 L (13.4-35.0) % Monocytes % (Manual) 13.0 H (0.0-7.3) % Seg Neutrophils # Man 1.6 L (1.8-7.7) K/mm3 Lymphocytes # (Manual) 0.8 L (1.2-5.4) K/mm3 Monocytes # (Manual) 1.1 H (0.0-0.8) K/mm3 Chloride 109.3 H (98-107) mmol/L Carbon Dioxide 17 L (22-30) mmol/L BUN 31 H (9-20) mg/dL Calcium 7.3 L (8.4-10.2) mg/dL C-Reactive Protein 23.40 H (0.00-1.30) mg/dL Total Protein 5.7 L (6.3-8.2) g/dL Albumin 2.2 L (3.9-5) g/dL
--- NOTE | 2017-03-12 17:10 | Death Note ---
Note Date of : 03/12/17 Time of : 17:00 Time Pronounced: 17:05 - Preliminary Cause of (problem) (1) Acute respiratory failure Qualifiers: Respiratory failure complication: hypoxia Qualified Code(s): J96.01 - Acute respiratory failure with hypoxia Preliminary cause of (2) Pneumonia Qualifiers: Pneumonia type: aspiration pneumonia Laterality: unspecified laterality Lung location: unspecified part of lung Preliminary cause of (3) Septic shock Preliminary cause of (4) Agent orange exposure Preliminary cause of
[2017-03-13] MEDS ORDERED: VANCOMYCIN 1,500 MG in NACL 0.9% 500 ML 500 ML IV SCH (10:00)
== END 2017-03-12 17:00 | DRG 871 ==
LOC: ED 00:42 → CC1 09:26
PROVIDERS: ADMIT Internal Medicine; ATTEND Internal Medicine
PROC: 4A033R1 Measurement of Arterial Saturation, Peripheral, Percutaneous Approach (ICD-10-PCS; 2017-03-11)
PROC: 3E0234Z Introduction of Serum, Toxoid and Vaccine into Muscle, Percutaneous Approach (ICD-10-PCS; principal; 2017-03-12)
DX: A41.9 Sepsis, unspecified organism (principal); R65.21 Severe sepsis with septic shock; J96.01 Acute respiratory failure with hypoxia; J15.9 Unspecified bacterial pneumonia; G20 Parkinson's disease; N40.0 Benign prostatic hyperplasia without lower urinary tract symptoms; I25.10 Atherosclerotic heart disease of native coronary artery without angina pectoris; Z66 Do not resuscitate; I48.91 Unspecified atrial fibrillation; I10 Essential (primary) hypertension; F32.9 Major depressive disorder, single episode, unspecified; J32.9 Chronic sinusitis, unspecified; I25.2 Old myocardial infarction; Z71.89 Other specified counseling; Z23 Encounter for immunization
CPT/HCPCS: 36415; 70450; 71045; 80053; 81001; 82140; 82803; 83036; 83880; 84484; 85007; 85025; 85610; 85730; 86140; 87040; 87400; 90686; 90732; 93005; 93010; 94760; 96365; 96366; 96375; J1650; J1885; J2543; J3010; J3370; J7030; J7040; J7050